=== PATIENT | male | born 1955 | race Caucasian/White ===

== ENCOUNTER 2020-08-07 12:50 | Inpatient (IN) ==
[2020-08-07] MEDS ORDERED: SODIUM CHLORIDE 0.9% 1,000 ML IV STA (13:40)
[2020-08-07 13:46] LABS: Basophils # 0.1 10*3/uL (0.0-0.2); Basophils % 0.4 % (0.0-0.8); Eosinophils # 0.4 10*3/uL (0.0-0.87); Hematocrit 33.4 VOL% (42.0-52.0); Hemoglobin 10.9 GM/DL (14.0-18.0); Immature Granulocytes Absolute 0.14 #; Lymphocytes # 1.1 10*3/uL (1.4-4.0); Lymphocytes % 7.9 % (21.2-54.2); Mean Corpuscular HGB Conc 32.6 GM/DL (32-36); Mean Corpuscular Volume 94.4 FL (87-102); Mean Platelet Volume 10.3 FL (9.6-12.0); Monocytes % 5.2 % (1.7-12.7); Neutrophils % 82.5 % (38.7-73.9); Platelet Count 309 T/CUMM (130-400); Red Blood Count 3.54 MC/CUMM (3.8-5.5); Red Cell Distribution Width 13.4 % (9.3-17.3); White Blood Count 14.1 T/CUMM (4-12)
[2020-08-07 13:58] LABS: Alanine Aminotransferase < 6 U/L (16-61); Alkaline Phosphatase 187 U/L (45-117); Aspartate Amino Transferase 11 U/L (0-37); Blood Urea Nitrogen 56 MG/DL (7-18); Calcium 8.8 MG/DL (8.5-10.1); Carbon Dioxide 19 MMOL/L (21-32); Estimated Glom Filtration Rate 17 ML/MIN; Glucose 186 MG/DL (74-106); Potassium 3.5 MMOL/L (3.5-5.1); Sodium 136 MMOL/L (136-145); Total Protein 6.5 G/DL (6.4-8.2)
[2020-08-07 15:35] LABS: Bilirubin,Urine Small mg/dL (Negative); Blood, Urine Large mg/dL (Negative); Glucose,Urine (UA) Negative (Negative); Ketones,Urine 5 mg/dL (Negative); Nitrite,Urine Negative (Negative); Protein,Urine Negative; RBC,Urine 207 /HPF (0-4); Urine Appearance CLOUDY (Clear); Urine Color Amber (Yellow); Urine Specific Gravity 1.029 (1.001-1.035)
[2020-08-07] MEDS ORDERED: GLUCAGON 1 MG VIAL IM PRN (16:19)
[2020-08-07] MEDS ORDERED: ALBUTEROL 2.5 MG/3 ML NEB RESP TX PRN (16:19)
[2020-08-07] MEDS ORDERED: DEXTROSE 50% 25 GM/50 ML VIAL IV PRN ×2 (16:19)
[2020-08-07] MEDS: SODIUM CHLORIDE 0.9% 1,000 ML IV SCH (18:08)
[2020-08-07] MEDS: HYDROCORTISONE 100 MG VIAL IV SCH (18:09)
[2020-08-08] MEDS: HYDROCORTISONE 100 MG VIAL IV SCH ×3 (00:30→17:33)
[2020-08-08] MEDS: SODIUM CHLORIDE 0.9% 1,000 ML IV SCH (01:25)
[2020-08-08 05:22] LABS: Basophils % 0.1 % (0.0-0.8); Eosinophils # 0.1 10*3/uL (0.0-0.87); Eosinophils % 0.3 % (0.00-10.9); Hematocrit 34.9 VOL% (42.0-52.0); Hemoglobin 11.3 GM/DL (14.0-18.0); Immature Granulocytes % 0.8 %; Immature Granulocytes Absolute 0.12 #; Lymphocytes # 1.1 10*3/uL (1.4-4.0); Lymphocytes % 7.1 % (21.2-54.2); Mean Corpuscular HGB Conc 32.4 GM/DL (32-36); Mean Corpuscular Volume 94.8 FL (87-102); Monocytes % 5.4 % (1.7-12.7); Neutrophils % 86.3 % (38.7-73.9); Platelet Count 346 T/CUMM (130-400); Red Blood Count 3.68 MC/CUMM (3.8-5.5); Red Cell Distribution Width 13.4 % (9.3-17.3); White Blood Count 14.9 T/CUMM (4-12)
[2020-08-08 05:46] LABS: Albumin 2.9 G/DL (3.4-5.0); Bilirubin,Total 1.3 MG/DL (0.2-1.0); Calcium 9.3 MG/DL (8.5-10.1); Osmolality,Calculated 297.5 MOS/KG (273-304); Potassium 3.6 MMOL/L (3.5-5.1); Risk Ratio 4.87; Thyroid Stimulating Hormone 0.022 uIU/ml (0.358-3.74); Total Protein 7.5 G/DL (6.4-8.2); VLDL CHOLESTEROL 29.6 MG/DL
[2020-08-08] MEDS: ACETAMINOPHEN 325 MG TABLET PO PRN (08:32)
[2020-08-08] MEDS: MONTELUKAST 10 MG TABLET PO SCH (08:32)
[2020-08-08] MEDS: PANTOPRAZOLE 40 MG TABLET PO SCH (08:32)
[2020-08-08] MEDS: FLUTICASONE 50 MCG NASAL SPRAY 16 GM BOTTLE BOTH NARES SCH (08:32)
[2020-08-08 10:07] LABS: Random Urine Protein (Bench) 201 MG/DL (<11.9)
[2020-08-08] MEDS: SODIUM BICARB INJ 100 MEQ in SODIUM CHLORIDE 0.45% 1,000 ML IV SCH (15:28)
[2020-08-09] MEDS: HYDROCORTISONE 100 MG VIAL IV SCH ×3 (01:50→18:16)
[2020-08-09] MEDS: ONDANSETRON 4 MG/2 ML VIAL IV PRN ×5 (01:55→23:33)
[2020-08-09] MEDS: SODIUM BICARB INJ 100 MEQ in SODIUM CHLORIDE 0.45% 1,000 ML IV SCH ×2 (02:05→13:43)
[2020-08-09 05:31] LABS: Basophils % 0.2 % (0.0-0.8); Eosinophils % 0.2 % (0.00-10.9); Hematocrit 29.7 VOL% (42.0-52.0); Hemoglobin 9.8 GM/DL (14.0-18.0); Immature Granulocytes % 1.2 %; Immature Granulocytes Absolute 0.23 #; Lymphocytes # 0.9 10*3/uL (1.4-4.0); Lymphocytes % 4.6 % (21.2-54.2); Mean Corpuscular Volume 93.1 FL (87-102); Neutrophils % 86.8 % (38.7-73.9); Platelet Count 338 T/CUMM (130-400); Red Blood Count 3.19 MC/CUMM (3.8-5.5); Red Cell Distribution Width 13.1 % (9.3-17.3); White Blood Count 18.5 T/CUMM (4-12)
[2020-08-09 05:58] LABS: Albumin 2.5 G/DL (3.4-5.0); Bilirubin,Total 1.3 MG/DL (0.2-1.0); Osmolality,Calculated 291.5 MOS/KG (273-304); Potassium 2.9 MMOL/L (3.5-5.1); Total Protein 6.5 G/DL (6.4-8.2)
[2020-08-09 05:58] LABS: Hypochromasia Slight; Lymphocytes 5 % (20-55); Segmented Neutrophils 88 % (50-85); Total Cells Counted 100
[2020-08-09 05:59] LABS: Hypersegmented Neutrophil SLIGHT; Microcytosis Slight; Platelet Estimate Normal
[2020-08-09] MEDS: SODIUM CHLORIDE 0.9% 1,000 ML IV SCH (07:52)
[2020-08-09] MEDS ORDERED: cefTRIAXone 1,000 MG in SODIUM CHLORIDE 0.9% 100 ML IV SCH (08:00)
[2020-08-09] MEDS ORDERED: AZITHROMYCIN INJ 500 MG in SODIUM CHLORIDE 0.9% 250 ML IV SCH (08:00)
[2020-08-09] MEDS ORDERED: POTASSIUM CHLORIDE 20 MEQ TABLET PO ONE (09:00)
[2020-08-09] MEDS: PANTOPRAZOLE 40 MG TABLET PO SCH (09:19)
[2020-08-09] MEDS: MONTELUKAST 10 MG TABLET PO SCH (09:19)
[2020-08-09] MEDS: FLUTICASONE 50 MCG NASAL SPRAY 16 GM BOTTLE BOTH NARES SCH (09:21)
[2020-08-09] MEDS: POTASSIUM CHLORIDE 20 MEQ TABLET PO PRN ×3 (11:36→18:15)
[2020-08-09] MEDS: SKIN HEALING OINT (AQUAPHOR) 50 GM TUBE TOP SCH (11:51)
[2020-08-09] MEDS: ACETAMINOPHEN 325 MG TABLET PO PRN (15:11)
[2020-08-09] MEDS ORDERED: PROMETHAZINE 25 MG TABLET PO PRN (17:30)
[2020-08-09] MEDS: carvediloL 3.125 MG TABLET PO SCH (18:15)
[2020-08-09] MEDS: DICLOFENAC SODIUM 75 MG TABLET PO SCH (21:12)
[2020-08-09] MEDS: POTASSIUM CHLORIDE INJ 40 MEQ in LACTATED RINGERS 1,000 ML IV SCH (21:12)
[2020-08-09] MEDS: CARBIDOPA/LEVODOPA 25-100 MG TABLET PO SCH (21:12)
[2020-08-09] MEDS: GABAPENTIN 300 MG CAPSULE PO SCH (21:13)
[2020-08-09] MEDS: HYDROXYCHLOROQUINE 200 MG TABLET PO SCH (21:13)
[2020-08-10] MEDS: HYDROCORTISONE 100 MG VIAL IV SCH ×3 (01:30→17:37)
[2020-08-10 04:14] LABS: Basophils % 0.2 % (0.0-0.8); Eosinophils % 0.2 % (0.00-10.9); Hemoglobin 9.6 GM/DL (14.0-18.0); Immature Granulocytes % 1.1 %; Immature Granulocytes Absolute 0.19 #; Lymphocytes # 1.1 10*3/uL (1.4-4.0); Lymphocytes % 6.6 % (21.2-54.2); Mean Corpuscular HGB Conc 34.3 GM/DL (32-36); Mean Corpuscular Volume 89.5 FL (87-102); Mean Platelet Volume 9.6 FL (9.6-12.0); Monocytes % 7.6 % (1.7-12.7); Neutrophils % 84.3 % (38.7-73.9); Platelet Count 303 T/CUMM (130-400); Red Blood Count 3.13 MC/CUMM (3.8-5.5); Red Cell Distribution Width 12.9 % (9.3-17.3); White Blood Count 17.2 T/CUMM (4-12)
[2020-08-10 04:32] LABS: Alanine Aminotransferase < 6 U/L (16-61); Albumin 2.4 G/DL (3.4-5.0); Alkaline Phosphatase 141 U/L (45-117); Aspartate Amino Transferase 9 U/L (0-37); Blood Urea Nitrogen 26 MG/DL (7-18); Carbon Dioxide 25 MMOL/L (21-32); Estimated Glom Filtration Rate 115 ML/MIN; Glucose 181 MG/DL (74-106); Osmolality,Calculated 284.7 MOS/KG (273-304); Potassium 2.9 MMOL/L (3.5-5.1); Sodium 138 MMOL/L (136-145); Total Protein 6.3 G/DL (6.4-8.2)
[2020-08-10] MEDS: CARBIDOPA/LEVODOPA 25-100 MG TABLET PO SCH ×3 (09:07→20:21)
[2020-08-10] MEDS: POTASSIUM CHLORIDE 20 MEQ TABLET PO PRN ×3 (09:07→18:41)
[2020-08-10] MEDS: amLODIPine 5 MG TABLET PO SCH (09:07)
[2020-08-10] MEDS: TAMSULOSIN 0.4 MG CAPSULE PO SCH (09:07)
[2020-08-10] MEDS: PANTOPRAZOLE 40 MG TABLET PO SCH (09:07)
[2020-08-10] MEDS: HYDROXYCHLOROQUINE 200 MG TABLET PO SCH ×2 (09:08→20:21)
[2020-08-10] MEDS: MONTELUKAST 10 MG TABLET PO SCH (09:08)
[2020-08-10] MEDS: carvediloL 3.125 MG TABLET PO SCH ×2 (09:08→17:36)
[2020-08-10] MEDS: GABAPENTIN 300 MG CAPSULE PO SCH ×4 (09:08→20:21)
[2020-08-10] MEDS: ONDANSETRON 4 MG/2 ML VIAL IV PRN ×3 (09:18→17:38)
[2020-08-10] MEDS: FLUTICASONE 50 MCG NASAL SPRAY 16 GM BOTTLE BOTH NARES SCH (09:35)
[2020-08-10] MEDS: SKIN HEALING OINT (AQUAPHOR) 50 GM TUBE TOP SCH (10:22)
[2020-08-10] MEDS: DICLOFENAC SODIUM 75 MG TABLET PO SCH ×2 (10:38→20:24)
[2020-08-10] MEDS: VANCOMYCIN 50 MG/ML 60 ML/BOTTLE PO SCH ×3 (12:00→23:25)
[2020-08-10] MEDS: POTASSIUM CHLORIDE INJ 40 MEQ in LACTATED RINGERS 1,000 ML IV SCH (12:41)
[2020-08-10] MEDS: ACETAMINOPHEN 325 MG TABLET PO PRN (22:16)
[2020-08-11] MEDS: HYDROCORTISONE 100 MG VIAL IV SCH ×2 (00:36→08:10)
[2020-08-11] MEDS: POTASSIUM CHLORIDE 20 MEQ TABLET PO PRN ×2 (01:53→05:08)
[2020-08-11] MEDS: POTASSIUM CHLORIDE INJ 40 MEQ in LACTATED RINGERS 1,000 ML IV SCH ×2 (02:17→15:30)
[2020-08-11] MEDS: VANCOMYCIN 50 MG/ML 60 ML/BOTTLE PO SCH ×4 (05:09→23:31)
[2020-08-11 06:09] LABS: Basophils % 0.1 % (0.0-0.8); Eosinophils # 0.1 10*3/uL (0.0-0.87); Eosinophils % 0.3 % (0.00-10.9); Hematocrit 28.3 VOL% (42.0-52.0); Hemoglobin 9.4 GM/DL (14.0-18.0); Immature Granulocytes % 2.3 %; Immature Granulocytes Absolute 0.49 #; Lymphocytes # 1.1 10*3/uL (1.4-4.0); Lymphocytes % 5.2 % (21.2-54.2); Mean Corpuscular HGB Conc 33.2 GM/DL (32-36); Mean Corpuscular Volume 92.5 FL (87-102); Mean Platelet Volume 9.7 FL (9.6-12.0); Neutrophils % 86.1 % (38.7-73.9); Platelet Count 308 T/CUMM (130-400); Red Blood Count 3.06 MC/CUMM (3.8-5.5); Red Cell Distribution Width 13.2 % (9.3-17.3); White Blood Count 21.3 T/CUMM (4-12)
[2020-08-11 06:28] LABS: Osmolality,Calculated 284.7 MOS/KG (273-304); Potassium 3.7 MMOL/L (3.5-5.1)
[2020-08-11] MEDS: TAMSULOSIN 0.4 MG CAPSULE PO SCH (08:10)
[2020-08-11] MEDS: HYDROXYCHLOROQUINE 200 MG TABLET PO SCH ×2 (08:10→23:31)
[2020-08-11] MEDS: FLUTICASONE 50 MCG NASAL SPRAY 16 GM BOTTLE BOTH NARES SCH (08:10)
[2020-08-11] MEDS: GABAPENTIN 300 MG CAPSULE PO SCH ×4 (08:10→23:31)
[2020-08-11] MEDS: MONTELUKAST 10 MG TABLET PO SCH (08:10)
[2020-08-11] MEDS: amLODIPine 5 MG TABLET PO SCH (08:11)
[2020-08-11] MEDS: CARBIDOPA/LEVODOPA 25-100 MG TABLET PO SCH ×3 (08:11→23:31)
[2020-08-11] MEDS: carvediloL 3.125 MG TABLET PO SCH ×2 (08:11→17:38)
[2020-08-11] MEDS: DICLOFENAC SODIUM 75 MG TABLET PO SCH ×2 (08:11→23:31)
[2020-08-11] MEDS: PANTOPRAZOLE 40 MG TABLET PO SCH (08:11)
[2020-08-11] MEDS: SKIN HEALING OINT (AQUAPHOR) 50 GM TUBE TOP SCH (09:12)
[2020-08-11 09:28] LABS: Band Neutrophils 5 % (0-10); Eosinophils 2 % (0-10); Lymphocytes 6 % (20-55); Platelet Estimate Normal; Segmented Neutrophils 80 % (50-85); Total Cells Counted 100
[2020-08-11] MEDS: oxyCODONE ER 20 MG TABLET PO SCH ×2 (10:58→23:30)
[2020-08-11] MEDS: ONDANSETRON 4 MG/2 ML VIAL IV PRN ×2 (11:02→23:33)
[2020-08-11] MEDS ORDERED: predniSONE 20 MG TABLET PO ONE (15:00)
[2020-08-11 19:06] LABS: Amorphous Crystals,Urine Occasional /HPF (Few); Bacteria,Urine Occasional /HPF (Few); Bilirubin,Urine Negative (Negative); Blood, Urine Small mg/dL (Negative); Glucose,Urine (UA) 50 mg/dL (Negative); Hyaline Casts,Urine 4 /LPF (0-3); Ketones,Urine 5 mg/dL (Negative); Mucus,Urine Occasional /LPF (Occasional); Nitrite,Urine Negative (Negative); Protein,Urine 100 MG/DL; Urine Appearance CLOUDY (Clear); Urine Color Yellow (Yellow); Urine Specific Gravity 1.023 (1.001-1.035); Urine Urobilinogen < 2.0 EU/DL (0.2-1.0); WBC,Urine 6 /HPF (0-6)
[2020-08-12] MEDS: POTASSIUM CHLORIDE INJ 40 MEQ in LACTATED RINGERS 1,000 ML IV SCH (05:14)
[2020-08-12] MEDS: VANCOMYCIN 50 MG/ML 60 ML/BOTTLE PO SCH ×2 (06:47→12:24)
[2020-08-12 08:51] LABS: Basophils # 0.1 10*3/uL (0.0-0.2); Basophils % 0.2 % (0.0-0.8); Eosinophils % 0.1 % (0.00-10.9); Hematocrit 30.7 VOL% (42.0-52.0); Hemoglobin 9.8 GM/DL (14.0-18.0); Immature Granulocytes % 3.1 %; Immature Granulocytes Absolute 0.89 #; Lymphocytes # 1.3 10*3/uL (1.4-4.0); Lymphocytes % 4.5 % (21.2-54.2); Mean Corpuscular HGB Conc 31.9 GM/DL (32-36); Mean Corpuscular Volume 95.3 FL (87-102); Mean Platelet Volume 9.6 FL (9.6-12.0); Monocytes % 4.4 % (1.7-12.7); Neutrophils % 87.7 % (38.7-73.9); Platelet Count 285 T/CUMM (130-400); Red Blood Count 3.22 MC/CUMM (3.8-5.5); Red Cell Distribution Width 13.4 % (9.3-17.3); White Blood Count 28.4 T/CUMM (4-12)
[2020-08-12] MEDS ORDERED: predniSONE 5 MG TABLET PO SCH (09:00)
[2020-08-12] MEDS ORDERED: predniSONE 20 MG TABLET PO ONE (09:00)
[2020-08-12 09:06] LABS: Calcium 9.3 MG/DL (8.5-10.1); Osmolality,Calculated 279.1 MOS/KG (273-304); Potassium 4.4 MMOL/L (3.5-5.1)
[2020-08-12 09:11] LABS: Band Neutrophils 4 % (0-10); Hypochromasia 1+; Lymphocytes 4 % (20-55); Microcytosis Slight; Platelet Estimate Normal; Segmented Neutrophils 88 % (50-85); Total Cells Counted 100
[2020-08-12] MEDS: amLODIPine 5 MG TABLET PO SCH (09:15)
[2020-08-12] MEDS: oxyCODONE ER 20 MG TABLET PO SCH (09:15)
[2020-08-12] MEDS: TAMSULOSIN 0.4 MG CAPSULE PO SCH (09:15)
[2020-08-12] MEDS: GABAPENTIN 300 MG CAPSULE PO SCH ×2 (09:15→12:23)
[2020-08-12] MEDS: DICLOFENAC SODIUM 75 MG TABLET PO SCH (09:15)
[2020-08-12] MEDS: MONTELUKAST 10 MG TABLET PO SCH (09:15)
[2020-08-12] MEDS: CARBIDOPA/LEVODOPA 25-100 MG TABLET PO SCH (09:15)
[2020-08-12] MEDS: HYDROXYCHLOROQUINE 200 MG TABLET PO SCH (09:15)
[2020-08-12] MEDS: carvediloL 3.125 MG TABLET PO SCH (09:15)
[2020-08-12] MEDS: PANTOPRAZOLE 40 MG TABLET PO SCH (09:16)
[2020-08-12] MEDS: FLUTICASONE 50 MCG NASAL SPRAY 16 GM BOTTLE BOTH NARES SCH (09:16)
[2020-08-12] MEDS: SKIN HEALING OINT (AQUAPHOR) 50 GM TUBE TOP SCH (11:05)
[2020-08-12 13:11] VITALS: BP 152/102
[2020-08-13] MEDS ORDERED: predniSONE 5 MG TABLET PO SCH (09:00)
== END 2020-08-12 13:25 | disposition home or self-care (01) | DRG 92 ==
LOC: N.ED 12:50 → SUATTDRO 16:19 → N.EDINP 16:19 → N.5E 17:45
PROVIDERS: ADMIT Internal Medicine; ATTEND Internal Medicine Geriatric Medicine

== ENCOUNTER 2020-08-13 14:36 | Inpatient (IN) ==
[2020-08-13] MEDS ORDERED: cefTRIAXone 1,000 MG in SODIUM CHLORIDE 0.9% 100 ML IV STA (17:11)
[2020-08-13] MEDS ORDERED: SODIUM CHLORIDE 0.9% 1,000 ML IV STA (17:11)
[2020-08-13 18:15] LABS: Troponin I < 0.015 NG/ML (0.00-0.045)
[2020-08-13 18:26] LABS: Thyroid Stimulating Hormone 0.033 uIU/ml (0.358-3.74)
[2020-08-13] MEDS ORDERED: DEXTROSE 50% 25 GM/50 ML VIAL IV PRN (19:03)
[2020-08-13] MEDS ORDERED: GLUCAGON 1 MG VIAL IM PRN (19:03)
[2020-08-13 19:30] LABS: Calcium 8.9 MG/DL (8.5-10.1); Osmolality,Calculated 262.5 MOS/KG (273-304); Potassium 5.8 MMOL/L (3.5-5.1)
[2020-08-13] MEDS ORDERED: ENOXAPARIN 40 MG/0.4 ML SYRINGE SUBCUT SCH (21:00)
[2020-08-13] MEDS ORDERED: METOPROLOL TARTRATE 5 MG/5 ML VIAL IV ONE (21:53)
[2020-08-13] MEDS ORDERED: SODIUM POLYSTYRENE SULFATE 15 GM/60 ML BOTTLE PO ONE (21:54)
[2020-08-13] MEDS: MONTELUKAST 10 MG TABLET PO SCH (21:57)
[2020-08-13] MEDS: CARBIDOPA/LEVODOPA 25-100 MG TABLET PO SCH (21:57)
[2020-08-13] MEDS: GABAPENTIN 300 MG CAPSULE PO SCH (21:57)
[2020-08-13] MEDS: MORPHINE ER 15 MG TABLET PO SCH (21:57)
[2020-08-13] MEDS: TAMSULOSIN 0.4 MG CAPSULE PO SCH (21:57)
[2020-08-13] MEDS: HYDROXYCHLOROQUINE 200 MG TABLET PO SCH (21:57)
[2020-08-13] MEDS: METOPROLOL TARTRATE 50 MG TABLET PO SCH (21:57)
[2020-08-13] MEDS: VANCOMYCIN 50 MG/ML 60 ML/BOTTLE PO SCH (21:58)
[2020-08-13] MEDS: INSULIN REGULAR 100 UNIT/ML SUBCUT SCH (22:11)
[2020-08-13] MEDS: DILTIAZEM INJ 100 MG in SODIUM CHLORIDE 0.9% 100 ML IV SCH (23:14)
[2020-08-13] MEDS ORDERED: DILTIAZEM 50 MG/10 ML VIAL IV ONE (23:40)
[2020-08-14] MEDS: ALBUTEROL/IPRATROPIUM 3 ML NEB RESP TX SCH ×4 (03:54→19:17)
[2020-08-14] MEDS: oxyCODONE/ACETAMINOPHEN 5-325 MG TABLET PO PRN ×3 (03:56→20:54)
[2020-08-14] MEDS: DILTIAZEM INJ 100 MG in SODIUM CHLORIDE 0.9% 100 ML IV SCH (05:31)
[2020-08-14 05:49] LABS: Basophils % 0.1 % (0.0-0.8); Immature Granulocytes % 3.9 %; Immature Granulocytes Absolute 0.91 #; Lymphocytes # 1.1 10*3/uL (1.4-4.0); Lymphocytes % 4.5 % (21.2-54.2); Mean Corpuscular HGB Conc 32.1 GM/DL (32-36); Mean Corpuscular Volume 94.3 FL (87-102); Mean Platelet Volume 10.5 FL (9.6-12.0); Monocytes % 3.3 % (1.7-12.7); NRBC # 0.02 10*3/uL; Neutrophils % 88.2 % (38.7-73.9); Platelet Count 266 T/CUMM (130-400); Red Blood Count 2.97 MC/CUMM (3.8-5.5); Red Cell Distribution Width 13.5 % (9.3-17.3); White Blood Count 23.4 T/CUMM (4-12)
[2020-08-14 06:08] LABS: Calcium 8.6 MG/DL (8.5-10.1); Osmolality,Calculated 281.8 MOS/KG (273-304); Potassium 3.5 MMOL/L (3.5-5.1)
[2020-08-14 06:14] LABS: Band Neutrophils 4 % (0-10); Hypochromasia 1+; Lymphocytes 5 % (20-55); Segmented Neutrophils 86 % (50-85); Total Cells Counted 100
[2020-08-14 06:15] LABS: Microcytosis 1+; Platelet Estimate Normal
[2020-08-14] MEDS: INSULIN REGULAR 100 UNIT/ML SUBCUT SCH ×4 (07:49→21:03)
[2020-08-14] MEDS ORDERED: LOSARTAN 50 MG TABLET PO SCH (09:00)
[2020-08-14] MEDS ORDERED: hydroCHLOROthiazide 25 MG TABLET PO SCH (09:00)
[2020-08-14] MEDS ORDERED: amLODIPine 5 MG TABLET PO SCH (09:00)
[2020-08-14] MEDS: HYDROXYCHLOROQUINE 200 MG TABLET PO SCH ×2 (10:01→20:55)
[2020-08-14] MEDS: predniSONE 5 MG TABLET PO SCH (10:01)
[2020-08-14] MEDS: METOPROLOL TARTRATE 50 MG TABLET PO SCH (10:02)
[2020-08-14] MEDS: CARBIDOPA/LEVODOPA 25-100 MG TABLET PO SCH ×3 (10:02→20:55)
[2020-08-14] MEDS: GABAPENTIN 300 MG CAPSULE PO SCH ×4 (10:02→20:56)
[2020-08-14] MEDS: MORPHINE ER 15 MG TABLET PO SCH ×3 (10:03→20:42)
[2020-08-14] MEDS: PANTOPRAZOLE 40 MG TABLET PO SCH (10:03)
[2020-08-14] MEDS: FERROUS SULFATE 325 MG TABLET PO SCH (10:03)
[2020-08-14] MEDS: FLUTICASONE 50 MCG NASAL SPRAY 16 GM BOTTLE BOTH NARES SCH (10:03)
[2020-08-14] MEDS: VANCOMYCIN 50 MG/ML 60 ML/BOTTLE PO SCH ×4 (10:04→21:08)
[2020-08-14] MEDS ORDERED: DEXTROSE 50% 25 GM/50 ML VIAL IV PRN (10:23)
[2020-08-14] MEDS ORDERED: POTASSIUM CHLORIDE 20 MEQ TABLET PO ONE (12:37)
[2020-08-14] MEDS ORDERED: MAGNESIUM SULF RIDER 2 GM/50 ML PREMIX IV ONE (12:37)
[2020-08-14] MEDS ORDERED: METOPROLOL TARTRATE 5 MG/5 ML VIAL IV ONE (12:40)
[2020-08-14] MEDS ORDERED: METOPROLOL TARTRATE 25 MG TABLET PO ONE (13:06)
[2020-08-14] MEDS: ASPIRIN EC 81 MG TABLET PO SCH (13:47)
[2020-08-14] MEDS: APIXABAN 5 MG TABLET PO SCH ×2 (16:22→20:55)
[2020-08-14] MEDS: MONTELUKAST 10 MG TABLET PO SCH (20:55)
[2020-08-14] MEDS: ROSUVASTATIN 20 MG TABLET PO SCH (20:55)
[2020-08-14] MEDS: TAMSULOSIN 0.4 MG CAPSULE PO SCH (20:55)
[2020-08-14] MEDS ORDERED: METOPROLOL TARTRATE 100 MG TABLET PO SCH (21:00)
[2020-08-14] MEDS ORDERED: METOPROLOL TARTRATE 50 MG TABLET PO SCH (21:00)
[2020-08-15] MEDS: DILTIAZEM INJ 100 MG in SODIUM CHLORIDE 0.9% 100 ML IV SCH ×2 (00:23→19:14)
[2020-08-15] MEDS: ALBUTEROL/IPRATROPIUM 3 ML NEB RESP TX SCH ×4 (01:25→19:15)
[2020-08-15] MEDS: oxyCODONE/ACETAMINOPHEN 5-325 MG TABLET PO PRN ×3 (05:01→21:09)
[2020-08-15 05:54] LABS: Basophils # 0.1 10*3/uL (0.0-0.2); Basophils % 0.3 % (0.0-0.8); Eosinophils # 0.1 10*3/uL (0.0-0.87); Eosinophils % 0.4 % (0.00-10.9); Hematocrit 30.2 VOL% (42.0-52.0); Hemoglobin 10.1 GM/DL (14.0-18.0); Immature Granulocytes % 3.8 %; Immature Granulocytes Absolute 1.14 #; Lymphocytes # 2.3 10*3/uL (1.4-4.0); Lymphocytes % 7.6 % (21.2-54.2); Mean Corpuscular HGB Conc 33.4 GM/DL (32-36); Mean Corpuscular Volume 92.9 FL (87-102); Mean Platelet Volume 10.5 FL (9.6-12.0); Monocytes % 3.8 % (1.7-12.7); Neutrophils % 84.1 % (38.7-73.9); Platelet Count 335 T/CUMM (130-400); Red Blood Count 3.25 MC/CUMM (3.8-5.5); Red Cell Distribution Width 13.4 % (9.3-17.3); White Blood Count 30.3 T/CUMM (4-12)
[2020-08-15 06:18] LABS: Band Neutrophils 1 % (0-10); Hypochromasia 1+; Lymphocytes 6 % (20-55); Microcytosis 1+; Platelet Estimate Adequate; Segmented Neutrophils 87 % (50-85); Total Cells Counted 100
[2020-08-15 06:19] LABS: Calcium 8.9 MG/DL (8.5-10.1); Risk Ratio 5.31
[2020-08-15] MEDS ORDERED: MAGNESIUM SULF RIDER 2 GM/50 ML PREMIX IV ONE (08:07)
[2020-08-15] MEDS ORDERED: POTASSIUM CHLORIDE 20 MEQ TABLET PO ONE (08:07)
[2020-08-15] MEDS ORDERED: METOPROLOL TARTRATE 100 MG TABLET PO SCH (09:00)
[2020-08-15] MEDS ORDERED: LOSARTAN 50 MG TABLET PO SCH ×2 (09:00)
[2020-08-15] MEDS ORDERED: DIGOXIN 0.5 MG/2 ML AMP IV ONE ×2 (09:17→13:07)
[2020-08-15] MEDS: HYDROXYCHLOROQUINE 200 MG TABLET PO SCH ×2 (10:51→21:07)
[2020-08-15] MEDS: GABAPENTIN 300 MG CAPSULE PO SCH ×4 (10:51→21:07)
[2020-08-15] MEDS: FERROUS SULFATE 325 MG TABLET PO SCH (10:52)
[2020-08-15] MEDS: APIXABAN 5 MG TABLET PO SCH ×2 (10:52→21:08)
[2020-08-15] MEDS: INSULIN REGULAR 100 UNIT/ML SUBCUT SCH ×4 (10:52→21:08)
[2020-08-15] MEDS: predniSONE 5 MG TABLET PO SCH (10:52)
[2020-08-15] MEDS: ASPIRIN EC 81 MG TABLET PO SCH (10:52)
[2020-08-15] MEDS: PANTOPRAZOLE 40 MG TABLET PO SCH (10:52)
[2020-08-15] MEDS: CARBIDOPA/LEVODOPA 25-100 MG TABLET PO SCH ×3 (10:52→21:08)
[2020-08-15] MEDS: VANCOMYCIN 50 MG/ML 60 ML/BOTTLE PO SCH ×4 (10:54→21:08)
[2020-08-15] MEDS: ASCORBIC ACID 500 MG TABLET PO SCH ×2 (11:55→21:08)
[2020-08-15] MEDS: MORPHINE ER 15 MG TABLET PO SCH ×2 (11:58→21:10)
[2020-08-15] MEDS: FLUTICASONE 50 MCG NASAL SPRAY 16 GM BOTTLE BOTH NARES SCH (13:17)
[2020-08-15] MEDS: DILTIAZEM 30 MG TABLET PO SCH ×3 (14:14→23:32)
[2020-08-15] MEDS: DESITIN 4OZ/NYSTATIN 15 GRAM MIXTURE PASTE TOP SCH ×2 (14:33→21:10)
[2020-08-15] MEDS ORDERED: BISOPROLOL 5 MG TABLET PO SCH (21:00)
[2020-08-15] MEDS: ROSUVASTATIN 20 MG TABLET PO SCH (21:07)
[2020-08-15] MEDS: MONTELUKAST 10 MG TABLET PO SCH (21:07)
[2020-08-15] MEDS: TAMSULOSIN 0.4 MG CAPSULE PO SCH (21:10)
[2020-08-16] MEDS: DILTIAZEM INJ 100 MG in SODIUM CHLORIDE 0.9% 100 ML IV SCH
[2020-08-16 05:25] LABS: Basophils % 0.2 % (0.0-0.8); Eosinophils # 0.2 10*3/uL (0.0-0.87); Eosinophils % 1.1 % (0.00-10.9); Immature Granulocytes % 4.3 %; Immature Granulocytes Absolute 0.84 #; Lymphocytes # 2.3 10*3/uL (1.4-4.0); Lymphocytes % 11.6 % (21.2-54.2); Mean Corpuscular HGB Conc 33.3 GM/DL (32-36); Mean Corpuscular Volume 92.2 FL (87-102); Mean Platelet Volume 10.4 FL (9.6-12.0); Monocytes % 4.7 % (1.7-12.7); Neutrophils % 78.1 % (38.7-73.9); Platelet Count 306 T/CUMM (130-400); Red Blood Count 2.93 MC/CUMM (3.8-5.5); Red Cell Distribution Width 13.2 % (9.3-17.3); White Blood Count 19.8 T/CUMM (4-12)
[2020-08-16 05:50] LABS: Band Neutrophils 3 % (0-10); Hypochromasia 1+; Lymphocytes 11 % (20-55); Metamyelocytes 1 %; Microcytosis 1+; Promyelocytes 1 %; Segmented Neutrophils 79 % (50-85); Total Cells Counted 100
[2020-08-16 05:57] LABS: Calcium 8.4 MG/DL (8.5-10.1); Potassium 2.9 MMOL/L (3.5-5.1)
[2020-08-16] MEDS: DILTIAZEM 30 MG TABLET PO SCH (06:36)
[2020-08-16] MEDS: ALBUTEROL/IPRATROPIUM 3 ML NEB RESP TX SCH ×3 (07:15→13:00)
[2020-08-16] MEDS: INSULIN REGULAR 100 UNIT/ML SUBCUT SCH ×2 (08:18→13:47)
[2020-08-16] MEDS ORDERED: BISOPROLOL 5 MG TABLET PO SCH (09:00)
[2020-08-16] MEDS ORDERED: DILTIAZEM 30 MG TABLET PO ONE (09:18)
[2020-08-16] MEDS ORDERED: POTASSIUM CHLORIDE 20 MEQ TABLET PO ONE (09:28)
[2020-08-16] MEDS ORDERED: MAGNESIUM SULF RIDER 2 GM/50 ML PREMIX IV PRN (09:29)
[2020-08-16] MEDS ORDERED: MAGNESIUM SULF RIDER 2 GM/50 ML PREMIX IV ONE (09:29)
[2020-08-16] MEDS ORDERED: MAGNESIUM SULF RIDER 4 GM/100 ML PREMIX IV PRN (09:29)
[2020-08-16] MEDS: oxyCODONE/ACETAMINOPHEN 5-325 MG TABLET PO PRN (10:03)
[2020-08-16] MEDS: ASCORBIC ACID 500 MG TABLET PO SCH (11:16)
[2020-08-16] MEDS: CARBIDOPA/LEVODOPA 25-100 MG TABLET PO SCH (11:16)
[2020-08-16] MEDS: ASPIRIN EC 81 MG TABLET PO SCH (11:16)
[2020-08-16] MEDS: HYDROXYCHLOROQUINE 200 MG TABLET PO SCH (11:17)
[2020-08-16] MEDS: PANTOPRAZOLE 40 MG TABLET PO SCH (11:17)
[2020-08-16] MEDS: predniSONE 5 MG TABLET PO SCH (11:17)
[2020-08-16] MEDS: APIXABAN 5 MG TABLET PO SCH (11:17)
[2020-08-16] MEDS: GABAPENTIN 300 MG CAPSULE PO SCH ×2 (11:17→14:00)
[2020-08-16] MEDS: FERROUS SULFATE 325 MG TABLET PO SCH (11:17)
[2020-08-16] MEDS: MORPHINE ER 15 MG TABLET PO SCH (11:18)
[2020-08-16] MEDS: DESITIN 4OZ/NYSTATIN 15 GRAM MIXTURE PASTE TOP SCH (11:18)
[2020-08-16] MEDS: VANCOMYCIN 50 MG/ML 60 ML/BOTTLE PO SCH ×2 (11:19→14:01)
[2020-08-16] MEDS: FLUTICASONE 50 MCG NASAL SPRAY 16 GM BOTTLE BOTH NARES SCH (11:19)
[2020-08-16] MEDS ORDERED: DILTIAZEM 60 MG TABLET PO SCH (12:00)
[2020-08-16 12:30] VITALS: BP 135/83
== END 2020-08-16 16:07 | disposition home or self-care (01) | DRG 309 ==
LOC: N.ED 14:36 → N.EDINP 19:03 → N.TELEN 19:46
PROVIDERS: ADMIT Internal Medicine Geriatric Medicine; ATTEND Internal Medicine Geriatric Medicine

== ENCOUNTER 2020-09-03 15:36 | Inpatient (IN) ==
[2020-09-03] MEDS ORDERED: DEXTROSE 50% 25 GM/50 ML VIAL IV PRN ×2 (18:35)
[2020-09-03] MEDS ORDERED: GLUCAGON 1 MG VIAL IM PRN ×2 (18:35)
[2020-09-03 19:13] LABS: Basophils # 0.1 10*3/uL (0.0-0.2); Basophils % 0.4 % (0.0-0.8); Eosinophils # 0.1 10*3/uL (0.0-0.87); Eosinophils % 0.9 % (0.00-10.9); Hematocrit 30.1 VOL% (42.0-52.0); Hemoglobin 9.3 GM/DL (14.0-18.0); Immature Granulocytes % 4.3 %; Immature Granulocytes Absolute 0.55 #; Lymphocytes # 2.5 10*3/uL (1.4-4.0); Lymphocytes % 19.5 % (21.2-54.2); Mean Corpuscular HGB Conc 30.9 GM/DL (32-36); Mean Corpuscular Volume 94.1 FL (87-102); Mean Platelet Volume 8.9 FL (9.6-12.0); NRBC # 0.02 10*3/uL; Neutrophils % 66.9 % (38.7-73.9); Platelet Count 418 T/CUMM (130-400); Red Cell Distribution Width 13.4 % (9.3-17.3); White Blood Count 12.8 T/CUMM (4-12)
[2020-09-03] MEDS ORDERED: METOPROLOL TARTRATE 5 MG/5 ML VIAL IV ONE (19:30)
[2020-09-03 19:47] LABS: Albumin 2.3 G/DL (3.4-5.0); Bilirubin,Total 0.7 MG/DL (0.2-1.0); Calcium 8.5 MG/DL (8.5-10.1); Osmolality,Calculated 277.7 MOS/KG (273-304); Potassium 3.5 MMOL/L (3.5-5.1); Risk Ratio 2.96; Thyroid Stimulating Hormone 0.041 uIU/ml (0.358-3.74); Total Protein 6.8 G/DL (6.4-8.2); VLDL CHOLESTEROL 19.8 MG/DL
[2020-09-03] MEDS: oxyCODONE/ACETAMINOPHEN 5-325 MG TABLET PO PRN (19:59)
[2020-09-03] MEDS: cefTRIAXone 2,000 MG in SODIUM CHLORIDE 0.9% 100 ML IV SCH (20:01)
[2020-09-03 20:05] LABS: Eosinophils 2 % (0-10); Lymphocytes 20 % (20-55); Segmented Neutrophils 71 % (50-85); Total Cells Counted 100
[2020-09-03] MEDS: VANCOMYCIN 50 MG/ML 60 ML/BOTTLE PO SCH (21:10)
[2020-09-03] MEDS: TAMSULOSIN 0.4 MG CAPSULE PO SCH (21:10)
[2020-09-03] MEDS: APIXABAN 5 MG TABLET PO SCH (21:11)
[2020-09-03] MEDS: BISOPROLOL 5 MG TABLET PO SCH (21:11)
[2020-09-03] MEDS: ASCORBIC ACID 500 MG TABLET PO SCH (21:11)
[2020-09-03] MEDS: CARBIDOPA/LEVODOPA 25-100 MG TABLET PO SCH (21:11)
[2020-09-03] MEDS: MONTELUKAST 10 MG TABLET PO SCH (21:11)
[2020-09-03] MEDS: HYDROXYCHLOROQUINE 200 MG TABLET PO SCH (21:11)
[2020-09-04] MEDS: oxyCODONE/ACETAMINOPHEN 5-325 MG TABLET PO PRN ×2 (04:20→18:05)
[2020-09-04] MEDS: CYANOCOBALAMIN 500 MCG TABLET PO SCH (08:13)
[2020-09-04] MEDS: predniSONE 5 MG TABLET PO SCH (08:13)
[2020-09-04] MEDS: HYDROXYCHLOROQUINE 200 MG TABLET PO SCH ×2 (08:13→21:34)
[2020-09-04] MEDS: ASCORBIC ACID 500 MG TABLET PO SCH ×2 (08:13→21:35)
[2020-09-04] MEDS: PANTOPRAZOLE 40 MG TABLET PO SCH (08:14)
[2020-09-04] MEDS: CARBIDOPA/LEVODOPA 25-100 MG TABLET PO SCH ×3 (08:14→21:34)
[2020-09-04] MEDS: DILTIAZEM CD 240 MG CAPSULE PO SCH (08:14)
[2020-09-04] MEDS: FERROUS SULFATE 325 MG TABLET PO SCH (08:14)
[2020-09-04] MEDS: FLUTICASONE 50 MCG NASAL SPRAY 16 GM BOTTLE BOTH NARES SCH (08:14)
[2020-09-04] MEDS: BISOPROLOL 5 MG TABLET PO SCH ×2 (08:14→21:35)
[2020-09-04] MEDS: APIXABAN 5 MG TABLET PO SCH (08:14)
[2020-09-04] MEDS: ASPIRIN EC 81 MG TABLET PO SCH (08:14)
[2020-09-04] MEDS: VANCOMYCIN 50 MG/ML 60 ML/BOTTLE PO SCH (08:16)
[2020-09-04] MEDS ORDERED: METOPROLOL TARTRATE 5 MG/5 ML VIAL IV PRN (11:52)
[2020-09-04] MEDS ORDERED: ONDANSETRON 4 MG/2 ML VIAL IV PRN (11:52)
[2020-09-04 14:13] LABS: INR 1.4; PT Patient Result 15.4 SECS (10.5-12.0)
[2020-09-04] MEDS ORDERED: methIMAzole 10 MG TABLET PO SCH (17:38)
[2020-09-04] MEDS: TAMSULOSIN 0.4 MG CAPSULE PO SCH (21:34)
[2020-09-04] MEDS: MONTELUKAST 10 MG TABLET PO SCH (21:34)
[2020-09-04] MEDS: methIMAzole 5 MG TABLET PO SCH (21:35)
[2020-09-04] MEDS: cefTRIAXone 2,000 MG in SODIUM CHLORIDE 0.9% 100 ML IV SCH (21:36)
[2020-09-05] MEDS: oxyCODONE/ACETAMINOPHEN 5-325 MG TABLET PO PRN ×3 (00:20→14:46)
[2020-09-05 06:10] LABS: Basophils # 0.1 10*3/uL (0.0-0.2); Basophils % 0.6 % (0.0-0.8); Eosinophils # 0.1 10*3/uL (0.0-0.87); Eosinophils % 0.8 % (0.00-10.9); Hematocrit 29.2 VOL% (42.0-52.0); Hemoglobin 9.5 GM/DL (14.0-18.0); Immature Granulocytes % 9.5 %; Immature Granulocytes Absolute 1.19 #; Lymphocytes # 2.4 10*3/uL (1.4-4.0); Lymphocytes % 19.1 % (21.2-54.2); Mean Corpuscular HGB Conc 32.5 GM/DL (32-36); Mean Corpuscular Volume 89.8 FL (87-102); Mean Platelet Volume 9.3 FL (9.6-12.0); Monocytes % 7.3 % (1.7-12.7); Neutrophils % 62.7 % (38.7-73.9); Platelet Count 353 T/CUMM (130-400); Red Blood Count 3.25 MC/CUMM (3.8-5.5); Red Cell Distribution Width 13.4 % (9.3-17.3); White Blood Count 12.5 T/CUMM (4-12)
[2020-09-05 06:39] LABS: Eosinophils 1 % (0-10); Lymphocytes 24 % (20-55); Platelet Estimate Normal; Segmented Neutrophils 69 % (50-85); Total Cells Counted 100
[2020-09-05 06:41] LABS: Alanine Aminotransferase < 6 U/L (16-61); Alkaline Phosphatase 377 U/L (45-117); Aspartate Amino Transferase 10 U/L (0-37); Blood Urea Nitrogen 15 MG/DL (7-18); Calcium 9.1 MG/DL (8.5-10.1); Carbon Dioxide 23 MMOL/L (21-32); Estimated Glom Filtration Rate 133 ML/MIN; Glucose 131 MG/DL (74-106); Osmolality,Calculated 281.4 MOS/KG (273-304); Potassium 3.1 MMOL/L (3.5-5.1); Sodium 140 MMOL/L (136-145); Total Protein 6.9 G/DL (6.4-8.2)
[2020-09-05] MEDS: BISOPROLOL 5 MG TABLET PO SCH ×2 (08:15→22:02)
[2020-09-05] MEDS: CYANOCOBALAMIN 500 MCG TABLET PO SCH (08:16)
[2020-09-05] MEDS: methIMAzole 5 MG TABLET PO SCH ×3 (08:16→22:02)
[2020-09-05] MEDS: FLUTICASONE 50 MCG NASAL SPRAY 16 GM BOTTLE BOTH NARES SCH (08:16)
[2020-09-05] MEDS: FERROUS SULFATE 325 MG TABLET PO SCH (08:17)
[2020-09-05] MEDS: ASPIRIN EC 81 MG TABLET PO SCH (08:17)
[2020-09-05] MEDS: ASCORBIC ACID 500 MG TABLET PO SCH ×2 (08:17→22:02)
[2020-09-05] MEDS: CARBIDOPA/LEVODOPA 25-100 MG TABLET PO SCH ×3 (08:17→22:01)
[2020-09-05] MEDS: HYDROXYCHLOROQUINE 200 MG TABLET PO SCH ×2 (08:17→22:01)
[2020-09-05] MEDS: predniSONE 5 MG TABLET PO SCH (08:17)
[2020-09-05] MEDS: DILTIAZEM CD 240 MG CAPSULE PO SCH (08:17)
[2020-09-05] MEDS: PANTOPRAZOLE 40 MG TABLET PO SCH (08:17)
[2020-09-05] MEDS ORDERED: POTASSIUM CHLORIDE 20 MEQ/15 ML UDCUP PER TUBE PRN (08:28)
[2020-09-05] MEDS ORDERED: MAGNESIUM SULF RIDER 4 GM/100 ML PREMIX IV PRN (08:29)
[2020-09-05] MEDS ORDERED: MAGNESIUM SULF RIDER 2 GM/50 ML PREMIX IV PRN (08:29)
[2020-09-05] MEDS: metroNIDAZOLE INJ 500 MG/100 ML PREMIX IV SCH ×2 (13:20→18:14)
[2020-09-05] MEDS: POTASSIUM CHLORIDE 20 MEQ TABLET PO PRN ×2 (14:46→18:15)
[2020-09-05] MEDS: GABAPENTIN 300 MG CAPSULE PO SCH ×2 (16:47→22:00)
[2020-09-05] MEDS: TAMSULOSIN 0.4 MG CAPSULE PO SCH (22:00)
[2020-09-05] MEDS: oxyCODONE ER 20 MG TABLET PO SCH (22:01)
[2020-09-05] MEDS: APIXABAN 5 MG TABLET PO SCH (22:01)
[2020-09-05] MEDS: MONTELUKAST 10 MG TABLET PO SCH (22:02)
[2020-09-05] MEDS: cefTRIAXone 2,000 MG in SODIUM CHLORIDE 0.9% 100 ML IV SCH (22:03)
[2020-09-06] MEDS: metroNIDAZOLE INJ 500 MG/100 ML PREMIX IV SCH ×4 (00:42→20:37)
[2020-09-06] MEDS: GABAPENTIN 300 MG CAPSULE PO SCH ×4 (09:16→20:32)
[2020-09-06] MEDS: methIMAzole 5 MG TABLET PO SCH ×3 (09:28→20:31)
[2020-09-06] MEDS: oxyCODONE ER 20 MG TABLET PO SCH ×2 (09:29→20:32)
[2020-09-06] MEDS: ASCORBIC ACID 500 MG TABLET PO SCH ×2 (09:30→20:32)
[2020-09-06] MEDS: CARBIDOPA/LEVODOPA 25-100 MG TABLET PO SCH ×3 (09:30→20:31)
[2020-09-06] MEDS: predniSONE 5 MG TABLET PO SCH (09:30)
[2020-09-06] MEDS: ASPIRIN EC 81 MG TABLET PO SCH (09:30)
[2020-09-06] MEDS: FERROUS SULFATE 325 MG TABLET PO SCH (09:30)
[2020-09-06] MEDS: HYDROXYCHLOROQUINE 200 MG TABLET PO SCH ×2 (09:30→20:32)
[2020-09-06] MEDS: APIXABAN 5 MG TABLET PO SCH ×2 (09:31→20:32)
[2020-09-06] MEDS: BISOPROLOL 5 MG TABLET PO SCH ×2 (09:31→20:31)
[2020-09-06] MEDS: PANTOPRAZOLE 40 MG TABLET PO SCH (09:32)
[2020-09-06] MEDS: FLUTICASONE 50 MCG NASAL SPRAY 16 GM BOTTLE BOTH NARES SCH (09:33)
[2020-09-06] MEDS: DILTIAZEM CD 240 MG CAPSULE PO SCH (09:41)
[2020-09-06] MEDS: CYANOCOBALAMIN 500 MCG TABLET PO SCH (09:42)
[2020-09-06 10:07] LABS: Basophils # 0.1 10*3/uL (0.0-0.2); Basophils % 0.4 % (0.0-0.8); Eosinophils # 0.1 10*3/uL (0.0-0.87); Eosinophils % 0.8 % (0.00-10.9); Hematocrit 29.8 VOL% (42.0-52.0); Hemoglobin 9.2 GM/DL (14.0-18.0); Immature Granulocytes % 12.2 %; Immature Granulocytes Absolute 2.06 #; Lymphocytes # 2.7 10*3/uL (1.4-4.0); Lymphocytes % 15.8 % (21.2-54.2); Mean Corpuscular HGB Conc 30.9 GM/DL (32-36); Mean Corpuscular Volume 92.5 FL (87-102); Mean Platelet Volume 9.2 FL (9.6-12.0); Monocytes % 5.9 % (1.7-12.7); Neutrophils % 64.9 % (38.7-73.9); Platelet Count 413 T/CUMM (130-400); Red Blood Count 3.22 MC/CUMM (3.8-5.5); Red Cell Distribution Width 13.4 % (9.3-17.3); White Blood Count 16.9 T/CUMM (4-12)
[2020-09-06 10:38] LABS: Alanine Aminotransferase < 6 U/L (16-61); Alkaline Phosphatase 361 U/L (45-117); Aspartate Amino Transferase 10 U/L (0-37); Bilirubin,Total < 0.39 MG/DL (0.2-1.0); Blood Urea Nitrogen 16 MG/DL (7-18); Calcium 8.8 MG/DL (8.5-10.1); Carbon Dioxide 24 MMOL/L (21-32); Estimated Glom Filtration Rate 126 ML/MIN; Glucose 225 MG/DL (74-106); Osmolality,Calculated 282.7 MOS/KG (273-304); Potassium 3.5 MMOL/L (3.5-5.1); Sodium 138 MMOL/L (136-145); Total Protein 6.8 G/DL (6.4-8.2)
[2020-09-06 10:45] LABS: Band Neutrophils 1 % (0-10); Eosinophils 2 % (0-10); Lymphocytes 15 % (20-55); Metamyelocytes 2 %; Segmented Neutrophils 73 % (50-85); Total Cells Counted 100
[2020-09-06 10:46] LABS: Hypochromasia Slight; Platelet Estimate Increased; Polychromasia Slight
[2020-09-06 10:47] LABS: Anisocytosis 1+; Stomatocytes Slight
[2020-09-06] MEDS: MONTELUKAST 10 MG TABLET PO SCH (20:31)
[2020-09-06] MEDS: TAMSULOSIN 0.4 MG CAPSULE PO SCH (20:31)
[2020-09-06] MEDS: LEVOFLOXACIN INJ 750 MG/150 ML PREMIX IV SCH (21:46)
[2020-09-07] MEDS: metroNIDAZOLE INJ 500 MG/100 ML PREMIX IV SCH ×4 (03:46→20:24)
[2020-09-07 05:58] LABS: Basophils # 0.1 10*3/uL (0.0-0.2); Basophils % 0.3 % (0.0-0.8); Eosinophils # 0.2 10*3/uL (0.0-0.87); Eosinophils % 1.3 % (0.00-10.9); Hematocrit 28.7 VOL% (42.0-52.0); Hemoglobin 9.3 GM/DL (14.0-18.0); Immature Granulocytes % 16.1 %; Lymphocytes # 3.6 10*3/uL (1.4-4.0); Lymphocytes % 22.3 % (21.2-54.2); Mean Corpuscular HGB Conc 32.4 GM/DL (32-36); Mean Corpuscular Volume 91.1 FL (87-102); Mean Platelet Volume 9.2 FL (9.6-12.0); NRBC # 0.02 10*3/uL; Platelet Count 390 T/CUMM (130-400); Red Blood Count 3.15 MC/CUMM (3.8-5.5); Red Cell Distribution Width 13.3 % (9.3-17.3); White Blood Count 16.2 T/CUMM (4-12)
[2020-09-07 06:16] LABS: Alanine Aminotransferase < 9 U/L (16-61); Albumin 2.1 G/DL (3.4-5.0); Alkaline Phosphatase 525 U/L (45-117); Aspartate Amino Transferase 24 U/L (0-37); Blood Urea Nitrogen 11 MG/DL (7-18); Calcium 8.7 MG/DL (8.5-10.1); Carbon Dioxide 27 MMOL/L (21-32); Estimated Glom Filtration Rate 133 ML/MIN; Glucose 118 MG/DL (74-106); Osmolality,Calculated 272.8 MOS/KG (273-304); Potassium 3.6 MMOL/L (3.5-5.1); Sodium 137 MMOL/L (136-145); Total Protein 6.7 G/DL (6.4-8.2)
[2020-09-07 06:45] LABS: Band Neutrophils 3 % (0-10); Hypochromasia Slight; Lymphocytes 20 % (20-55); Metamyelocytes 4 %; Myelocytes 1 %; Promyelocytes 1 %; Segmented Neutrophils 68 % (50-85); Total Cells Counted 100
[2020-09-07 06:46] LABS: Microcytosis 1+; Platelet Estimate Normal
[2020-09-07] MEDS: HYDROXYCHLOROQUINE 200 MG TABLET PO SCH ×2 (09:10→20:23)
[2020-09-07] MEDS: PANTOPRAZOLE 40 MG TABLET PO SCH (09:10)
[2020-09-07] MEDS: BISOPROLOL 5 MG TABLET PO SCH ×2 (09:10→20:23)
[2020-09-07] MEDS: DILTIAZEM CD 240 MG CAPSULE PO SCH (09:10)
[2020-09-07] MEDS: APIXABAN 5 MG TABLET PO SCH ×2 (09:10→20:23)
[2020-09-07] MEDS: CYANOCOBALAMIN 500 MCG TABLET PO SCH (09:10)
[2020-09-07] MEDS: methIMAzole 5 MG TABLET PO SCH ×3 (09:11→20:23)
[2020-09-07] MEDS: ASCORBIC ACID 500 MG TABLET PO SCH ×2 (09:11→20:23)
[2020-09-07] MEDS: oxyCODONE ER 20 MG TABLET PO SCH ×2 (09:11→20:23)
[2020-09-07] MEDS: GABAPENTIN 300 MG CAPSULE PO SCH ×4 (09:12→20:23)
[2020-09-07] MEDS: predniSONE 5 MG TABLET PO SCH (09:12)
[2020-09-07] MEDS: CARBIDOPA/LEVODOPA 25-100 MG TABLET PO SCH ×3 (09:12→20:23)
[2020-09-07] MEDS: ASPIRIN EC 81 MG TABLET PO SCH (09:12)
[2020-09-07] MEDS: FERROUS SULFATE 325 MG TABLET PO SCH (09:12)
[2020-09-07] MEDS: FLUTICASONE 50 MCG NASAL SPRAY 16 GM BOTTLE BOTH NARES SCH (09:15)
[2020-09-07] MEDS: TAMSULOSIN 0.4 MG CAPSULE PO SCH (20:23)
[2020-09-07] MEDS: MONTELUKAST 10 MG TABLET PO SCH (20:23)
[2020-09-07] MEDS: LEVOFLOXACIN INJ 750 MG/150 ML PREMIX IV SCH (21:21)
[2020-09-08] MEDS: metroNIDAZOLE INJ 500 MG/100 ML PREMIX IV SCH ×4 (02:51→20:05)
[2020-09-08] MEDS: methIMAzole 5 MG TABLET PO SCH ×3 (08:27→20:01)
[2020-09-08] MEDS: CARBIDOPA/LEVODOPA 25-100 MG TABLET PO SCH ×3 (08:28→20:02)
[2020-09-08] MEDS: CYANOCOBALAMIN 500 MCG TABLET PO SCH (08:28)
[2020-09-08] MEDS: PANTOPRAZOLE 40 MG TABLET PO SCH (08:28)
[2020-09-08] MEDS: ASPIRIN EC 81 MG TABLET PO SCH (08:28)
[2020-09-08] MEDS: BISOPROLOL 5 MG TABLET PO SCH ×2 (08:28→20:01)
[2020-09-08] MEDS: ASCORBIC ACID 500 MG TABLET PO SCH ×2 (08:29→20:01)
[2020-09-08] MEDS: HYDROXYCHLOROQUINE 200 MG TABLET PO SCH ×2 (08:29→20:02)
[2020-09-08] MEDS: GABAPENTIN 300 MG CAPSULE PO SCH ×4 (08:29→20:01)
[2020-09-08] MEDS: DILTIAZEM CD 240 MG CAPSULE PO SCH (08:29)
[2020-09-08] MEDS: predniSONE 5 MG TABLET PO SCH (08:29)
[2020-09-08] MEDS: APIXABAN 5 MG TABLET PO SCH ×2 (08:29→20:01)
[2020-09-08] MEDS: FERROUS SULFATE 325 MG TABLET PO SCH (08:29)
[2020-09-08] MEDS: FLUTICASONE 50 MCG NASAL SPRAY 16 GM BOTTLE BOTH NARES SCH (08:30)
[2020-09-08] MEDS: oxyCODONE ER 20 MG TABLET PO SCH ×2 (08:39→20:02)
[2020-09-08 09:05] LABS: Basophils # 0.1 10*3/uL (0.0-0.2); Basophils % 0.6 % (0.0-0.8); Eosinophils # 0.3 10*3/uL (0.0-0.87); Eosinophils % 1.3 % (0.00-10.9); Hematocrit 29.9 VOL% (42.0-52.0); Hemoglobin 9.4 GM/DL (14.0-18.0); Immature Granulocytes Absolute 2.72 #; Lymphocytes # 3.6 10*3/uL (1.4-4.0); Lymphocytes % 18.4 % (21.2-54.2); Mean Corpuscular HGB Conc 31.4 GM/DL (32-36); Mean Corpuscular Volume 92.9 FL (87-102); Mean Platelet Volume 9.2 FL (9.6-12.0); Monocytes % 5.7 % (1.7-12.7); Platelet Count 459 T/CUMM (130-400); Red Blood Count 3.22 MC/CUMM (3.8-5.5); Red Cell Distribution Width 13.3 % (9.3-17.3); White Blood Count 19.5 T/CUMM (4-12)
[2020-09-08 09:25] LABS: Band Neutrophils 2 % (0-10); Eosinophils 3 % (0-10); Hypochromasia 1+; Lymphocytes 22 % (20-55); Metamyelocytes 4 %; Myelocytes 2 %; Segmented Neutrophils 58 % (50-85); Total Cells Counted 100
[2020-09-08 09:26] LABS: Microcytosis 1+; Polychromasia Slight
[2020-09-08] MEDS: MONTELUKAST 10 MG TABLET PO SCH (20:01)
[2020-09-08] MEDS: TAMSULOSIN 0.4 MG CAPSULE PO SCH (20:01)
[2020-09-08] MEDS: LEVOFLOXACIN INJ 750 MG/150 ML PREMIX IV SCH (22:21)
[2020-09-09] MEDS: metroNIDAZOLE INJ 500 MG/100 ML PREMIX IV SCH (03:39)
[2020-09-09 05:58] LABS: Basophils # 0.1 10*3/uL (0.0-0.2); Basophils % 0.6 % (0.0-0.8); Eosinophils # 0.2 10*3/uL (0.0-0.87); Eosinophils % 0.9 % (0.00-10.9); Hematocrit 28.8 VOL% (42.0-52.0); Hemoglobin 9.4 GM/DL (14.0-18.0); Immature Granulocytes % 10.8 %; Immature Granulocytes Absolute 2.33 #; Lymphocytes # 4.1 10*3/uL (1.4-4.0); Mean Corpuscular HGB Conc 32.6 GM/DL (32-36); Mean Corpuscular Volume 91.7 FL (87-102); Mean Platelet Volume 9.1 FL (9.6-12.0); Monocytes % 6.2 % (1.7-12.7); NRBC # 0.02 10*3/uL; Neutrophils % 62.5 % (38.7-73.9); Platelet Count 471 T/CUMM (130-400); Red Blood Count 3.14 MC/CUMM (3.8-5.5); Red Cell Distribution Width 13.7 % (9.3-17.3); White Blood Count 21.6 T/CUMM (4-12)
[2020-09-09 06:28] LABS: Band Neutrophils 1 % (0-10); Eosinophils 1 % (0-10); Lymphocytes 29 % (20-55); Segmented Neutrophils 60 % (50-85); Total Cells Counted 100
[2020-09-09 06:29] LABS: Hypochromasia 1+; Microcytosis 1+; Platelet Estimate Adequate
[2020-09-09 06:47] LABS: Alanine Aminotransferase < 9 U/L (16-61); Albumin 2.3 G/DL (3.4-5.0); Alkaline Phosphatase 531 U/L (45-117); Aspartate Amino Transferase 24 U/L (0-37); Blood Urea Nitrogen 7 MG/DL (7-18); Calcium 8.7 MG/DL (8.5-10.1); Carbon Dioxide 28 MMOL/L (21-32); Estimated Glom Filtration Rate 132 ML/MIN; Glucose 122 MG/DL (74-106); Osmolality,Calculated 271.8 MOS/KG (273-304); Potassium 3.5 MMOL/L (3.5-5.1); Sodium 137 MMOL/L (136-145); Total Protein 6.7 G/DL (6.4-8.2)
[2020-09-09] MEDS: ASCORBIC ACID 500 MG TABLET PO SCH ×2 (08:50→21:02)
[2020-09-09] MEDS: GABAPENTIN 300 MG CAPSULE PO SCH ×4 (08:50→21:02)
[2020-09-09] MEDS: CYANOCOBALAMIN 500 MCG TABLET PO SCH (08:50)
[2020-09-09] MEDS: methIMAzole 5 MG TABLET PO SCH ×3 (08:50→21:01)
[2020-09-09] MEDS: ASPIRIN EC 81 MG TABLET PO SCH (08:50)
[2020-09-09] MEDS: BISOPROLOL 5 MG TABLET PO SCH ×2 (08:50→21:02)
[2020-09-09] MEDS: CARBIDOPA/LEVODOPA 25-100 MG TABLET PO SCH ×3 (08:50→21:02)
[2020-09-09] MEDS: HYDROXYCHLOROQUINE 200 MG TABLET PO SCH ×2 (08:51→21:01)
[2020-09-09] MEDS: DILTIAZEM CD 240 MG CAPSULE PO SCH (08:51)
[2020-09-09] MEDS: APIXABAN 5 MG TABLET PO SCH ×2 (08:51→21:02)
[2020-09-09] MEDS: PANTOPRAZOLE 40 MG TABLET PO SCH (08:51)
[2020-09-09] MEDS: predniSONE 5 MG TABLET PO SCH (08:51)
[2020-09-09] MEDS: FERROUS SULFATE 325 MG TABLET PO SCH (08:51)
[2020-09-09] MEDS: oxyCODONE ER 20 MG TABLET PO SCH ×2 (08:51→21:02)
[2020-09-09] MEDS: FLUTICASONE 50 MCG NASAL SPRAY 16 GM BOTTLE BOTH NARES SCH (08:59)
[2020-09-09] MEDS: cefTRIAXone 2,000 MG in SODIUM CHLORIDE 0.9% 100 ML IV SCH (09:58)
[2020-09-09] MEDS: LACTOBACILLUS ACIDOPHILUS/BULGARICUS CAPLET PO SCH (21:01)
[2020-09-09] MEDS: TAMSULOSIN 0.4 MG CAPSULE PO SCH (21:02)
[2020-09-09] MEDS: MONTELUKAST 10 MG TABLET PO SCH (21:02)
[2020-09-10 05:38] LABS: Basophils # 0.1 10*3/uL (0.0-0.2); Basophils % 0.3 % (0.0-0.8); Eosinophils # 0.1 10*3/uL (0.0-0.87); Eosinophils % 0.7 % (0.00-10.9); Hemoglobin 8.4 GM/DL (14.0-18.0); Immature Granulocytes % 8.3 %; Immature Granulocytes Absolute 1.53 #; Lymphocytes % 21.5 % (21.2-54.2); Mean Corpuscular HGB Conc 31.1 GM/DL (32-36); Mean Corpuscular Volume 93.4 FL (87-102); Mean Platelet Volume 9.2 FL (9.6-12.0); Monocytes % 7.6 % (1.7-12.7); Neutrophils % 61.6 % (38.7-73.9); Platelet Count 461 T/CUMM (130-400); Red Blood Count 2.89 MC/CUMM (3.8-5.5); Red Cell Distribution Width 13.8 % (9.3-17.3); White Blood Count 18.4 T/CUMM (4-12)
[2020-09-10 06:00] LABS: Calcium 8.6 MG/DL (8.5-10.1); Osmolality,Calculated 273.7 MOS/KG (273-304); Potassium 3.6 MMOL/L (3.5-5.1)
[2020-09-10 07:03] LABS: Band Neutrophils 3 % (0-10); Hypochromasia 1+; Lymphocytes 20 % (20-55); Microcytosis 1+; Platelet Estimate Adequate; Segmented Neutrophils 75 % (50-85); Total Cells Counted 100
[2020-09-10] MEDS: ASCORBIC ACID 500 MG TABLET PO SCH ×2 (08:43→21:40)
[2020-09-10] MEDS: PANTOPRAZOLE 40 MG TABLET PO SCH (08:43)
[2020-09-10] MEDS: oxyCODONE ER 20 MG TABLET PO SCH ×2 (08:43→21:40)
[2020-09-10] MEDS: MULTIVITAMIN (BEROCCA) TABLET PO SCH (08:43)
[2020-09-10] MEDS: BISOPROLOL 5 MG TABLET PO SCH ×2 (08:43→21:40)
[2020-09-10] MEDS: methIMAzole 5 MG TABLET PO SCH ×3 (08:43→21:41)
[2020-09-10] MEDS: CYANOCOBALAMIN 500 MCG TABLET PO SCH (08:43)
[2020-09-10] MEDS: APIXABAN 5 MG TABLET PO SCH ×2 (08:44→21:41)
[2020-09-10] MEDS: CARBIDOPA/LEVODOPA 25-100 MG TABLET PO SCH ×3 (08:44→21:41)
[2020-09-10] MEDS: LACTOBACILLUS ACIDOPHILUS/BULGARICUS CAPLET PO SCH ×2 (08:44→21:40)
[2020-09-10] MEDS: DILTIAZEM CD 240 MG CAPSULE PO SCH (08:44)
[2020-09-10] MEDS: FERROUS SULFATE 325 MG TABLET PO SCH (08:44)
[2020-09-10] MEDS: cefTRIAXone 2,000 MG in SODIUM CHLORIDE 0.9% 100 ML IV SCH (08:44)
[2020-09-10] MEDS: predniSONE 5 MG TABLET PO SCH (08:44)
[2020-09-10] MEDS: HYDROXYCHLOROQUINE 200 MG TABLET PO SCH ×2 (08:44→21:41)
[2020-09-10] MEDS: GABAPENTIN 300 MG CAPSULE PO SCH ×4 (08:44→21:41)
[2020-09-10] MEDS: FLUTICASONE 50 MCG NASAL SPRAY 16 GM BOTTLE BOTH NARES SCH (08:51)
[2020-09-10] MEDS: ASPIRIN EC 81 MG TABLET PO SCH (08:52)
[2020-09-10] MEDS: MONTELUKAST 10 MG TABLET PO SCH (21:40)
[2020-09-10] MEDS: TAMSULOSIN 0.4 MG CAPSULE PO SCH (21:41)
[2020-09-11 05:25] LABS: Basophils # 0.1 10*3/uL (0.0-0.2); Basophils % 0.5 % (0.0-0.8); Eosinophils # 0.2 10*3/uL (0.0-0.87); Eosinophils % 1.1 % (0.00-10.9); Hemoglobin 8.4 GM/DL (14.0-18.0); Immature Granulocytes % 6.8 %; Immature Granulocytes Absolute 1.16 #; Lymphocytes # 5.1 10*3/uL (1.4-4.0); Lymphocytes % 29.9 % (21.2-54.2); Mean Corpuscular HGB Conc 31.1 GM/DL (32-36); Mean Corpuscular Volume 93.4 FL (87-102); Monocytes % 6.9 % (1.7-12.7); Neutrophils % 54.8 % (38.7-73.9); Platelet Count 512 T/CUMM (130-400); Red Blood Count 2.89 MC/CUMM (3.8-5.5); Red Cell Distribution Width 14.1 % (9.3-17.3); White Blood Count 17.1 T/CUMM (4-12)
[2020-09-11 05:52] LABS: Calcium 8.9 MG/DL (8.5-10.1); Osmolality,Calculated 273.7 MOS/KG (273-304); Potassium 3.3 MMOL/L (3.5-5.1)
[2020-09-11 05:56] LABS: Hypochromasia 1+; Microcytosis 1+; Platelet Estimate Increased
[2020-09-11] MEDS: MULTIVITAMIN (BEROCCA) TABLET PO SCH (09:53)
[2020-09-11] MEDS: oxyCODONE ER 20 MG TABLET PO SCH ×2 (09:53→20:09)
[2020-09-11] MEDS: ASPIRIN EC 81 MG TABLET PO SCH (09:53)
[2020-09-11] MEDS: LACTOBACILLUS ACIDOPHILUS/BULGARICUS CAPLET PO SCH ×2 (09:54→20:08)
[2020-09-11] MEDS: ASCORBIC ACID 500 MG TABLET PO SCH ×2 (09:54→20:09)
[2020-09-11] MEDS: PANTOPRAZOLE 40 MG TABLET PO SCH (09:54)
[2020-09-11] MEDS: CYANOCOBALAMIN 500 MCG TABLET PO SCH (09:54)
[2020-09-11] MEDS: DILTIAZEM CD 240 MG CAPSULE PO SCH (09:55)
[2020-09-11] MEDS: BISOPROLOL 5 MG TABLET PO SCH ×2 (09:55→20:08)
[2020-09-11] MEDS: GABAPENTIN 300 MG CAPSULE PO SCH ×4 (09:55→20:09)
[2020-09-11] MEDS: POTASSIUM CHLORIDE 20 MEQ TABLET PO PRN (09:55)
[2020-09-11] MEDS: FERROUS SULFATE 325 MG TABLET PO SCH (09:55)
[2020-09-11] MEDS: CARBIDOPA/LEVODOPA 25-100 MG TABLET PO SCH ×3 (09:56→20:10)
[2020-09-11] MEDS: predniSONE 5 MG TABLET PO SCH (09:56)
[2020-09-11] MEDS: methIMAzole 5 MG TABLET PO SCH ×3 (09:56→20:08)
[2020-09-11] MEDS: APIXABAN 5 MG TABLET PO SCH ×2 (09:56→20:08)
[2020-09-11] MEDS: FLUTICASONE 50 MCG NASAL SPRAY 16 GM BOTTLE BOTH NARES SCH (10:01)
[2020-09-11] MEDS: HYDROXYCHLOROQUINE 200 MG TABLET PO SCH ×2 (10:01→20:09)
[2020-09-11] MEDS: cefTRIAXone 2,000 MG in SODIUM CHLORIDE 0.9% 100 ML IV SCH (10:02)
[2020-09-11] MEDS: TAMSULOSIN 0.4 MG CAPSULE PO SCH (20:08)
[2020-09-11] MEDS: MONTELUKAST 10 MG TABLET PO SCH (20:08)
[2020-09-12 05:21] LABS: Basophils # 0.1 10*3/uL (0.0-0.2); Basophils % 0.5 % (0.0-0.8); Eosinophils # 0.2 10*3/uL (0.0-0.87); Eosinophils % 1.2 % (0.00-10.9); Hematocrit 26.8 VOL% (42.0-52.0); Hemoglobin 8.5 GM/DL (14.0-18.0); Immature Granulocytes % 4.5 %; Immature Granulocytes Absolute 0.59 #; Lymphocytes # 4.3 10*3/uL (1.4-4.0); Lymphocytes % 33.2 % (21.2-54.2); Mean Corpuscular HGB Conc 31.7 GM/DL (32-36); Mean Corpuscular Volume 91.8 FL (87-102); Mean Platelet Volume 8.9 FL (9.6-12.0); Monocytes % 7.4 % (1.7-12.7); Neutrophils % 53.2 % (38.7-73.9); Platelet Count 505 T/CUMM (130-400); Red Blood Count 2.92 MC/CUMM (3.8-5.5); Red Cell Distribution Width 14.1 % (9.3-17.3)
[2020-09-12 05:47] LABS: Eosinophils 1 % (0-10); Hypochromasia 1+; Lymphocytes 29 % (20-55); Microcytosis 1+; Segmented Neutrophils 59 % (50-85); Total Cells Counted 100
[2020-09-12 05:48] LABS: Platelet Estimate Increased
[2020-09-12 05:57] LABS: Calcium 9.1 MG/DL (8.5-10.1); Osmolality,Calculated 274.7 MOS/KG (273-304); Potassium 3.8 MMOL/L (3.5-5.1)
[2020-09-12 07:59] VITALS: BP 112/64
[2020-09-12] MEDS: LACTOBACILLUS ACIDOPHILUS/BULGARICUS CAPLET PO SCH (08:55)
[2020-09-12] MEDS: oxyCODONE ER 20 MG TABLET PO SCH (08:55)
[2020-09-12] MEDS: BISOPROLOL 5 MG TABLET PO SCH (08:56)
[2020-09-12] MEDS: HYDROXYCHLOROQUINE 200 MG TABLET PO SCH (08:56)
[2020-09-12] MEDS: methIMAzole 5 MG TABLET PO SCH (08:56)
[2020-09-12] MEDS: ASCORBIC ACID 500 MG TABLET PO SCH (08:56)
[2020-09-12] MEDS: FERROUS SULFATE 325 MG TABLET PO SCH (08:56)
[2020-09-12] MEDS: predniSONE 5 MG TABLET PO SCH (08:57)
[2020-09-12] MEDS: GABAPENTIN 300 MG CAPSULE PO SCH (08:57)
[2020-09-12] MEDS: ASPIRIN EC 81 MG TABLET PO SCH (08:57)
[2020-09-12] MEDS: APIXABAN 5 MG TABLET PO SCH (08:57)
[2020-09-12] MEDS: CYANOCOBALAMIN 500 MCG TABLET PO SCH (08:57)
[2020-09-12] MEDS: MULTIVITAMIN (BEROCCA) TABLET PO SCH (08:57)
[2020-09-12] MEDS: CARBIDOPA/LEVODOPA 25-100 MG TABLET PO SCH (08:57)
[2020-09-12] MEDS: PANTOPRAZOLE 40 MG TABLET PO SCH (08:57)
[2020-09-12] MEDS: DILTIAZEM CD 240 MG CAPSULE PO SCH (08:58)
[2020-09-12] MEDS ORDERED: AMOXICILLIN 500 MG CAPSULE PO SCH (09:00)
[2020-09-12] MEDS: FLUTICASONE 50 MCG NASAL SPRAY 16 GM BOTTLE BOTH NARES SCH (09:04)
== END 2020-09-12 11:45 | disposition home health service (06) | DRG 178 ==
LOC: SUATTDRO 17:27 → N.5E 17:27
PROVIDERS: ADMIT Internal Medicine; ATTEND Hospitalist
PROC: IRGDHTC (2020-09-04 14:50)

== ENCOUNTER 2022-05-12 13:50 | Inpatient (IN) ==
[2022-05-12] MEDS ORDERED: DIPH/TET/ACEL PERT BOOSTER VACCINE 0.5 ML VIAL IM ONE (14:58)
[2022-05-12] MEDS ORDERED: HYDROmorphone 1 MG/1 ML SYRINGE ONE (15:40)
[2022-05-12] MEDS ORDERED: HYDROmorphone 1 MG/1 ML SYRINGE IV STA (15:40)
[2022-05-12] MEDS ORDERED: ONDANSETRON 4 MG/2 ML VIAL ONE (15:44)
[2022-05-12] MEDS ORDERED: ONDANSETRON 4 MG/2 ML VIAL IV STA (15:52)
[2022-05-12] MEDS ORDERED: MORPHINE 2 MG/1 ML SYRINGE IV PRN (16:40)
[2022-05-12] MEDS ORDERED: ONDANSETRON 4 MG/2 ML VIAL IV PRN (16:40)
[2022-05-12] MEDS: GABAPENTIN 300 MG CAPSULE PO SCH ×2 (18:05→21:38)
[2022-05-12 18:37] LABS: Basophils # 0.1 10*3/uL (0.0-0.2); Basophils % 0.6 % (0.0-0.8); Eosinophils # 0.6 10*3/uL (0.0-0.87); Eosinophils % 4.1 % (0.00-10.9); Hemoglobin 11.1 GM/DL (14.0-18.0); Immature Granulocytes % 0.5 %; Immature Granulocytes Absolute 0.07 #; Lymphocytes # 2.3 10*3/uL (1.4-4.0); Lymphocytes % 14.7 % (21.2-54.2); Mean Corpuscular HGB Conc 33.6 GM/DL (32-36); Mean Corpuscular Volume 97.6 FL (87-102); Mean Platelet Volume 9.7 FL (9.6-12.0); Monocytes # 0.9 10*3/uL (0.11-0.8); Monocytes % 6.1 % (1.7-12.7); Platelet Count 215 T/CUMM (130-400); Red Blood Count 3.38 MC/CUMM (3.8-5.5); Red Cell Distribution Width 13.1 % (9.3-17.3); White Blood Count 15.4 T/CUMM (4-12)
[2022-05-12 18:45] LABS: PT Patient Result 11.1 SECS (10.1-12.1)
[2022-05-12 18:53] LABS: Albumin 3.8 G/DL (3.4-5.0); Bilirubin,Total 0.7 MG/DL (0.20-1.00); Osmolality,Calculated 283.7 MOS/KG (273-304); Potassium 3.9 MMOL/L (3.5-5.1); Total Protein 6.9 G/DL (6.4-8.2)
[2022-05-12] MEDS: FLECAINIDE 100 MG TABLET PO SCH (21:38)
[2022-05-12] MEDS: ASCORBIC ACID 500 MG TABLET PO SCH (21:38)
[2022-05-12] MEDS: CARBIDOPA/LEVODOPA 25-100 MG TABLET PO SCH (21:38)
[2022-05-12] MEDS: carvediloL 3.125 MG TABLET PO SCH (21:38)
[2022-05-12] MEDS: LOSARTAN 50 MG TABLET PO SCH (21:38)
[2022-05-12] MEDS: DICLOFENAC SODIUM 75 MG TABLET PO SCH (21:38)
[2022-05-12] MEDS: HYDROXYCHLOROQUINE 200 MG TABLET PO SCH (21:38)
[2022-05-12] MEDS: FERROUS SULFATE 325 MG TABLET PO SCH (21:38)
[2022-05-12] MEDS: oxyCODONE ER 20 MG TABLET PO PRN (21:39)
[2022-05-12] MEDS: MONTELUKAST 10 MG TABLET PO SCH (21:39)
[2022-05-12] MEDS: TAMSULOSIN 0.4 MG CAPSULE PO SCH (21:39)
[2022-05-12] MEDS: INSULIN REGULAR 100 UNIT/ML SUBCUT SCH (21:39)
[2022-05-13 05:43] LABS: Basophils # 0.1 10*3/uL (0.0-0.2); Basophils % 0.4 % (0.0-0.8); Eosinophils # 0.7 10*3/uL (0.0-0.87); Eosinophils % 6.3 % (0.00-10.9); Hematocrit 32.8 VOL% (42.0-52.0); Hemoglobin 10.6 GM/DL (14.0-18.0); Immature Granulocytes % 0.4 %; Immature Granulocytes Absolute 0.05 #; Lymphocytes # 2.3 10*3/uL (1.4-4.0); Lymphocytes % 20.3 % (21.2-54.2); Mean Corpuscular HGB Conc 32.3 GM/DL (32-36); Mean Corpuscular Volume 101.5 FL (87-102); Monocytes % 8.5 % (1.7-12.7); Neutrophils % 64.1 % (38.7-73.9); Platelet Count 214 T/CUMM (130-400); Red Blood Count 3.23 MC/CUMM (3.8-5.5); White Blood Count 11.3 T/CUMM (4-12)
[2022-05-13] MEDS: oxyCODONE ER 20 MG TABLET PO PRN (05:51)
[2022-05-13] MEDS ORDERED: ceFAZolin 2,000 MG/50 ML DUPLEX IV ONE (06:00)
[2022-05-13] MEDS ORDERED: MIDAZOLAM 2 MG/2 ML VIAL ONE (06:31)
[2022-05-13] MEDS ORDERED: ROCURONIUM 50 MG/5 ML VIAL IV ONE (06:31)
[2022-05-13] MEDS ORDERED: SUCCINYLCHOLINE 200 MG/10 ML VIAL ONE (06:31)
[2022-05-13] MEDS ORDERED: LIDOCAINE 2% 5 ML VIAL ONE (06:31)
[2022-05-13] MEDS ORDERED: fentaNYL 100 MCG/2 ML VIAL ONE (06:31)
[2022-05-13] MEDS ORDERED: propofoL 200 MG/20 ML VIAL IV ONE (06:31)
[2022-05-13 06:32] LABS: Albumin 3.6 G/DL (3.4-5.0); Calcium 8.8 MG/DL (8.5-10.1); Osmolality,Calculated 285.5 MOS/KG (273-304); Potassium 4.1 MMOL/L (3.5-5.1); Total Protein 6.8 G/DL (6.4-8.2)
[2022-05-13] MEDS ORDERED: DEXAMETHASONE 4 MG/1 ML VIAL ONE (06:38)
[2022-05-13] MEDS ORDERED: LIDOCAINE 1% 5 ML VIAL ONE (06:38)
[2022-05-13] MEDS ORDERED: ROPIVACAINE 0.5% 30 ML VIAL ONE (06:39)
[2022-05-13] MEDS ORDERED: BACITRACIN OINT 0.9 GM PACK TOP ONE (06:44)
[2022-05-13] MEDS ORDERED: FAMOTIDINE 20 MG/2 ML VIAL IV ONE (06:59)
[2022-05-13] MEDS: LACTATED RINGERS 1,000 ML IV SCH ×2 (07:16→09:01)
[2022-05-13] MEDS ORDERED: ePHEDrine 50 MG/ML VIAL ONE (08:05)
[2022-05-13] MEDS ORDERED: ONDANSETRON 4 MG/2 ML VIAL ONE (08:08)
[2022-05-13] MEDS ORDERED: SEVOFLURANE 1 UNIT/15 MINUTE INH ONE (08:39)
[2022-05-13] MEDS ORDERED: LACTATED RINGERS 1,000 ML IV ONE (08:39)
[2022-05-13] MEDS ORDERED: SUGAMMADEX 200 MG/2 ML VIAL IV ONE (08:48)
[2022-05-13] MEDS ORDERED: MAGNESIUM HYDROXIDE SUSP 30 ML UDCUP PO PRN (09:09)
[2022-05-13] MEDS ORDERED: oxyCODONE/ACETAMINOPHEN 5-325 MG TABLET PO PRN (09:09)
[2022-05-13] MEDS: INSULIN REGULAR 100 UNIT/ML SUBCUT SCH ×4 (09:36→21:00)
[2022-05-13] MEDS ORDERED: ONDANSETRON 4 MG/2 ML VIAL IV PRN (09:36)
[2022-05-13] MEDS: HYDROmorphone 1 MG/1 ML SYRINGE IV PRN ×2 (09:43→09:50)
[2022-05-13] MEDS: carvediloL 3.125 MG TABLET PO SCH ×2 (11:39→20:46)
[2022-05-13] MEDS: DILTIAZEM CD 240 MG CAPSULE PO SCH (11:39)
[2022-05-13] MEDS: FUROSEMIDE 20 MG TABLET PO SCH (11:40)
[2022-05-13] MEDS: FLUTICASONE 50 MCG NASAL SPRAY 16 GM BOTTLE BOTH NARES SCH (11:40)
[2022-05-13] MEDS: ESCITALOPRAM 10 MG TABLET PO SCH (11:40)
[2022-05-13] MEDS: FERROUS SULFATE 325 MG TABLET PO SCH ×2 (11:40→20:52)
[2022-05-13] MEDS: FLECAINIDE 100 MG TABLET PO SCH ×2 (11:40→20:45)
[2022-05-13] MEDS: LOSARTAN 50 MG TABLET PO SCH ×2 (11:40→20:55)
[2022-05-13] MEDS: GABAPENTIN 300 MG CAPSULE PO SCH ×4 (11:40→20:45)
[2022-05-13] MEDS: HYDROXYCHLOROQUINE 200 MG TABLET PO SCH ×2 (11:40→20:55)
[2022-05-13] MEDS: CARBIDOPA/LEVODOPA 25-100 MG TABLET PO SCH ×3 (11:40→20:45)
[2022-05-13] MEDS: ASCORBIC ACID 500 MG TABLET PO SCH ×2 (11:41→20:46)
[2022-05-13] MEDS: CYANOCOBALAMIN 500 MCG TABLET PO SCH (11:41)
[2022-05-13] MEDS: DICLOFENAC SODIUM 75 MG TABLET PO SCH (11:48)
[2022-05-13] MEDS: ceFAZolin 2,000 MG/50 ML DUPLEX IV SCH ×2 (16:43→23:34)
[2022-05-13] MEDS: oxyCODONE ER 20 MG TABLET PO SCH (17:15)
[2022-05-13] MEDS: APIXABAN 2.5 MG TABLET PO SCH (20:46)
[2022-05-13] MEDS: TAMSULOSIN 0.4 MG CAPSULE PO SCH (20:47)
[2022-05-13] MEDS: MONTELUKAST 10 MG TABLET PO SCH (20:55)
[2022-05-14] MEDS: oxyCODONE ER 20 MG TABLET PO SCH ×2 (05:36→17:00)
[2022-05-14 07:25] LABS: Albumin 3.3 G/DL (3.4-5.0); Bilirubin,Total 0.5 MG/DL (0.20-1.00); Calcium 8.7 MG/DL (8.5-10.1); Osmolality,Calculated 280.8 MOS/KG (273-304); Potassium 3.8 MMOL/L (3.5-5.1); Total Protein 6.6 G/DL (6.4-8.2)
[2022-05-14] MEDS: FLECAINIDE 100 MG TABLET PO SCH ×2 (08:41→21:42)
[2022-05-14] MEDS: INSULIN REGULAR 100 UNIT/ML SUBCUT SCH ×4 (08:41→21:43)
[2022-05-14] MEDS: DILTIAZEM CD 240 MG CAPSULE PO SCH (08:41)
[2022-05-14] MEDS: FUROSEMIDE 20 MG TABLET PO SCH (08:42)
[2022-05-14] MEDS: ASCORBIC ACID 500 MG TABLET PO SCH ×2 (08:42→21:43)
[2022-05-14] MEDS: FERROUS SULFATE 325 MG TABLET PO SCH ×2 (08:42→21:43)
[2022-05-14] MEDS: APIXABAN 2.5 MG TABLET PO SCH ×2 (08:42→21:43)
[2022-05-14] MEDS: LOSARTAN 50 MG TABLET PO SCH ×2 (08:42→21:43)
[2022-05-14] MEDS: PANTOPRAZOLE 40 MG TABLET PO SCH (08:42)
[2022-05-14] MEDS: CARBIDOPA/LEVODOPA 25-100 MG TABLET PO SCH ×3 (08:42→21:42)
[2022-05-14] MEDS: HYDROXYCHLOROQUINE 200 MG TABLET PO SCH ×2 (08:42→21:43)
[2022-05-14] MEDS: carvediloL 3.125 MG TABLET PO SCH ×2 (08:42→16:30)
[2022-05-14] MEDS: GABAPENTIN 300 MG CAPSULE PO SCH ×4 (08:42→21:43)
[2022-05-14] MEDS: FLUTICASONE 50 MCG NASAL SPRAY 16 GM BOTTLE BOTH NARES SCH (08:48)
[2022-05-14] MEDS: ESCITALOPRAM 10 MG TABLET PO SCH (08:48)
[2022-05-14] MEDS: CYANOCOBALAMIN 500 MCG TABLET PO SCH (08:48)
[2022-05-14] MEDS: MONTELUKAST 10 MG TABLET PO SCH (21:43)
[2022-05-14] MEDS: TAMSULOSIN 0.4 MG CAPSULE PO SCH (21:43)
[2022-05-15 05:27] LABS: Alanine Aminotransferase < 9 U/L (16-61); Albumin 3.3 G/DL (3.4-5.0); Alkaline Phosphatase 76 U/L (45-117); Aspartate Amino Transferase 19 U/L (0-37); Blood Urea Nitrogen 22 MG/DL (7-18); Carbon Dioxide 26 MMOL/L (21-32); Chloride 106 MMOL/L (98-107); Glucose 117 MG/DL (74-106); Osmolality,Calculated 284.3 MOS/KG (273-304); Potassium 3.5 MMOL/L (3.5-5.1); Sodium 141 MMOL/L (136-145); Total Protein 6.8 G/DL (6.4-8.2)
[2022-05-15] MEDS: oxyCODONE ER 20 MG TABLET PO SCH (06:01)
[2022-05-15 08:21] LABS: Basophils # 0.1 10*3/uL (0.0-0.2); Basophils % 0.6 % (0.0-0.8); Eosinophils # 0.7 10*3/uL (0.0-0.87); Eosinophils % 6.5 % (0.00-10.9); Hematocrit 30.5 VOL% (42.0-52.0); Hemoglobin 9.9 GM/DL (14.0-18.0); Immature Granulocytes % 0.6 %; Immature Granulocytes Absolute 0.06 #; Lymphocytes # 2.5 10*3/uL (1.4-4.0); Lymphocytes % 23.1 % (21.2-54.2); Mean Corpuscular HGB Conc 32.5 GM/DL (32-36); Mean Platelet Volume 10.7 FL (9.6-12.0); Monocytes # 0.9 10*3/uL (0.11-0.8); Monocytes % 8.3 % (1.7-12.7); Neutrophils % 60.9 % (38.7-73.9); Platelet Count 203 T/CUMM (130-400); Red Blood Count 3.05 MC/CUMM (3.8-5.5); White Blood Count 10.8 T/CUMM (4-12)
[2022-05-15] MEDS: INSULIN REGULAR 100 UNIT/ML SUBCUT SCH (08:57)
[2022-05-15] MEDS: FLECAINIDE 100 MG TABLET PO SCH (09:29)
[2022-05-15] MEDS: ASCORBIC ACID 500 MG TABLET PO SCH (09:29)
[2022-05-15] MEDS: ESCITALOPRAM 10 MG TABLET PO SCH (09:29)
[2022-05-15] MEDS: FUROSEMIDE 20 MG TABLET PO SCH (09:30)
[2022-05-15] MEDS: APIXABAN 2.5 MG TABLET PO SCH (09:30)
[2022-05-15] MEDS: CARBIDOPA/LEVODOPA 25-100 MG TABLET PO SCH (09:30)
[2022-05-15] MEDS: PANTOPRAZOLE 40 MG TABLET PO SCH (09:30)
[2022-05-15] MEDS: HYDROXYCHLOROQUINE 200 MG TABLET PO SCH (09:30)
[2022-05-15] MEDS: carvediloL 3.125 MG TABLET PO SCH (09:30)
[2022-05-15] MEDS: LOSARTAN 50 MG TABLET PO SCH (09:30)
[2022-05-15] MEDS: DILTIAZEM CD 240 MG CAPSULE PO SCH (09:30)
[2022-05-15] MEDS: GABAPENTIN 300 MG CAPSULE PO SCH (09:30)
[2022-05-15] MEDS: FERROUS SULFATE 325 MG TABLET PO SCH (09:30)
[2022-05-15] MEDS: CYANOCOBALAMIN 500 MCG TABLET PO SCH (09:30)
[2022-05-15] MEDS: FLUTICASONE 50 MCG NASAL SPRAY 16 GM BOTTLE BOTH NARES SCH (09:36)
[2022-05-15 11:38] VITALS: BP 146/68
== END 2022-05-15 11:30 | DRG 493 ==
LOC: EDUNIT# → EDBD → N.ED 13:50 → N.EDINP 16:40 → SUATTDRO 16:40 → N.3E 17:27
PROVIDERS: ADMIT Internal Medicine; ATTEND Internal Medicine